=== PATIENT | female | born 1970 | race Caucasian/White ===

== ENCOUNTER 2023-03-14 11:30 | Day surgery (SDC) | payer MEDICAID, SELFPAY ==
--- NOTE | 2023-03-11 08:52 | EKG12_ITS ---
Test Reason : PRE-OP Blood Pressure : / mmHG Vent. Rate : 079 BPM Atrial Rate : 079 BPM P-R Int : 128 ms QRS Dur : 076 ms QT Int : 384 ms P-R-T Axes : 018 005 042 degrees QTc Int : 440 ms Normal sinus rhythm Normal ECG Confirmed by CHRISTIAN VAIL, ROMA ([id number]), editor managing director KIRAN FAULKNER ([id number]) on 03/11/2023 11:22:58 AM Referred By: Riley Zaldivar Confirmed By:ROMA GONZALES MD
[2023-03-11 10:51] LABS: Absolute Lymphocyte Count 1.59 X10^3/uL (0.83-4.51); Basophil# 0.05 X10^3/uL; Basophil% 0.8 % (0-1); Eosinophil# 0.22 X10^3/uL; Eosinophils% 3.4 % (0-5); Hematocrit 41.2 % (37-47); Hemoglobin 13.2 g/dL (12.0-15.0); Lymphocyte # 1.59 X10^3/ul (0.83-4.51); Lymphocyte % 24.3 % (19-41); Mean Corpuscular Hgb 30.4 pg (27.0-32.0); Mean Corpuscular Volume 94.9 fL (81-99); Mean Platelet Vol. 10.3 fl (6.2-12.0); Monocyte# 0.65 X10^3/uL; Monocyte% 9.9 % (0-10); NRBC Flagged by Analyzer 0 % (0-5); Neutrophil % 61.1 % (47-70); Platelet Count 365 K/mm3 (150-450); RBC Distribution Width CV 14.1 % (11.6-14.6); RBC Distribution Width SD 49.5 fl (35.1-43.9); Red Blood Count 4.34 M/mm3 (4.2-5.4); White Blood Count 6.5 K/mm3 (4.4-11.0)
[2023-03-11 11:13] LABS: Anion Gap 7 (5-15); BUN 12 mg/dL (7-18); BUN/Creat Ratio 15.9 RATIO (10-20); Calcium,Total 9.1 mg/dL (8.5-10.1); Chloride 109 mmol/L (98-107); Creatinine, Serum 0.75 mg/dL (0.55-1.02); EST Glomerular Filtration Rate 86 mL/min (>60); Est Glom Filt Rate - Afr Amer 104 mL/min (>60); Glucose 119 mg/dL (74-106); Sodium Level 141 mmol/L (136-145)
[2023-03-14 11:53] VITALS: BP 140/78; PULSE 74; RESP 16; TEMP 35.9; O2SAT 99; BMI 31.8
[2023-03-14] MEDS: Lactated Ringers 1,000 ML 15 ML IV (11:57)
[2023-03-14] MEDS: Lidocaine 2% /Epi 1:100 (20ml) 20 ML VIAL (13:35)
[2023-03-14] MEDS: Cefazolin 2 GM in 0.9% Normal Saline 100 ML IV (13:35)
[2023-03-14 13:55] VITALS: BP 115/63; BP 140/78; PULSE 74; RESP 18; TEMP 37.1; O2SAT 95
[2023-03-14 14:00] VITALS: BP 113/63; BP 140/78; PULSE 70; RESP 15; O2SAT 95
--- NOTE | 2023-03-14 14:00 | DCINST_ITS ---
Discharge Instructions Follow Up Care Test Results: Test results from this visit will be discussed in further detail at your follow- up appointment, if applicable. Discharge Plan Admission Primary Reason for Your Visit: Left trigger thumb release Attending Provider: Riley Zaldivar Primary Care Provider: Franco Aquino Instructions Additional Instructions / Restrictions: Follow preprinted instructions from your surgeons office Discharge Orders/Prescriptions Prescriptions: New hydrocodone-acetaminophen 5-325 mg tablet 1 tab PO Q6H PRN (Reason: pain) 3 Days Qty: 12 0RF Other Ambulatory Orders: 12 Lead EKG (Routine) Timeframe: 20230311 Location: None Selected Ordered By: Dr. Riley Zaldivar Referrals / Follow Up: Franco Aquino DO [Primary Care Provider] - Riley Zaldivar DO [Med Staff - Active Staff] - Disposition Disposition (needs filled in before D/C Order can be placed): Home, Self Care
[2023-03-14 14:05] VITALS: BP 112/63; BP 140/78; PULSE 68; RESP 18; O2SAT 95
[2023-03-14 14:10] VITALS: BP 117/65; BP 140/78; PULSE 63; RESP 18; TEMP 37; O2SAT 95
[2023-03-14 14:26] VITALS: BP 140/78
--- NOTE | 2023-03-14 15:16 | OP.PCM_ITS ---
Report of Operation Date of Procedure: 03/14/23 Description of Surgical Findings:: Of aPreoperative diagnosis: Left trigger thumb Postoperative diagnosis: Left trigger thumb Procedure: Left trigger thumb A1 miky release Primary Surgeon: Riley Zaldivar DO Anesthesia: MAC with local Anesthesiologist: Dr. Oconnor Complications: None apparent IV fluids: 600 cc crystalloid Estimated blood loss: 3 cc Specimen: None Packing/drains: None Implants: None Urine output: None recorded Preoperative indications: This is a 52-year-old female seen in the outpatient setting for a left trigger thumb. We discussed operative versus nonoperative management. We discussed the lack of response of trigger thumbs with regards to corticosteroid injections. She wished to proceed with surgical intervention. We discussed surgical intervention. The risk, benefits, terms of procedure were reviewed with patient at length and she agreed to proceed. Risks included but were not limited to bleeding, infection, loss of life or limb, nonhealing wounds, triggering recurrence, persistent pain, stiffness, neurovascular injury, DVT or PE. She expressed understanding of these risks and wished to proceed with surgery. Description of procedure: Patient was identified the preoperative holding area by name, medical record number, and date of . The operative extremity was marked. All questions were answered to patient satisfaction. Informed consent was confirmed with the patient At time of the procedure, patient brought the operative suite and positioned supine on a standard operating table. A hand table was attached to the patient's left side. Gentle MAC was administered. A well-padded pneumatic tourniquet was applied to the left upper arm. A tumescent field block was administered with 10 cc total 2% lidocaine with epinephrine epinephrine 1: 200,000. Patient tolerated the block well without complication. We then prepped and draped the left upper extremity normal, sterile orthopedic fashion. We performed a timeout with all parties in attendance in agreement the side, site, operation be performed. No concerns voiced and we elected proceed with surgery. 2 g Ancef was administered IV prior to the tourniquet inflation by anesthesia staff. I first confirmed anesthesia with Adson forceps on the skin. A transverse incision was made in the flexion crease overlying the A1 miky approximately 1 cm in length. I bluntly dissected the subcutaneous layer down to the A1 miky. Right now retractors were placed medially and laterally to protect neurovascular bundles. Central portion of the miky was identified and split in line with the flexor tendons. I then utilized Littler scissors to complete release proximal and distal ensuring complete release of the A1 miky. I then had the patient actively make a fist and extend the thumb without recurrence of the triggering noted. She was able to visualize the lack of triggering in the operative suite. I then copiously irrigated the wound normal saline solution. Incision was closed in interrupted simple fashion with 4-0 nylon suture. Sterile bulky loose dressing was applied. She tolerated procedure well without apparent complication. Patient was transferred to PACU in stable condition. Postoperative plan: Patient be discharged home today after meeting same-day surgery criteria. Patient will be weightbearing less than 3 pounds to the operative hand. She will follow-up in 10 days for suture removal and wound ch niya. Active range of motion encouraged. Short prescription of Bonsall provided, encouraged to take [id number] analgesics primarily for pain. Ice and elevation encouraged.
== END 2023-03-14 14:51 | disposition home or self-care (01) ==
LOC: SDC 11:32 → AC 11:33
PROVIDERS: PCP Student in an Organized Health Care Education/Training Program; Referring Provider Student in an Organized Health Care Education/Training Program; Visit Provider Student in an Organized Health Care Education/Training Program
PROC: (CPT 26055; principal; 2023-03-14 12:55)
DX: M65.312 Trigger thumb, left thumb (principal); F17.210 Nicotine dependence, cigarettes, uncomplicated
CPT/HCPCS: 26055; 01810; 36415; 80048; 85025; 93005; J7120; J2405